=== PATIENT | female | born 1955 | race Caucasian/White ===

== ENCOUNTER → 2019-04-29 13:45 | Outpatient (CLI) | payer OTHER, SELFPAY ==
--- NOTE | 2019-04-29 14:05 | RAD_ITS ---
STUDY: X-RAY CHEST REASON FOR EXAM: Female, 64 years old. Preoperative exam TECHNIQUE: Frontal and lateral views of the chest COMPARISON: None. FINDINGS: The lungs are clear. There are no pleural effusions. There is no pneumothorax. The heart is normal in size. The visualized osseous structures are within normal limits. RAD/Chest PA and Lateral IMPRESSION: Clear lungs. Electronically Signed: Mo Diane, at 20:29 EDT Tel , Service support ,
[2019-04-29 15:24] LABS: Absolute Lymphocyte Count 2.53 X10^3/uL (0.83-4.51); Absolute Neutrophil Count 3.8 X10^3/uL (2.0-7.7); Basophil# 0.03 X10^3/uL; Basophil% 0.4 % (0-1); Eosinophil# 0.26 X10^3/uL; Eosinophils% 3.6 % (0-5); Hematocrit 39.5 % (37-47); Hemoglobin 12.8 g/dL (12.0-15.0); Lymphocyte # 2.53 X10^3/ul (4.0); Lymphocyte % 34.9 % (19-41); Mean Corp Hgb Conc 32.4 g/dL (32-36); Mean Corpuscular Volume 92.5 fL (81-99); Mean Platelet Vol. 10.2 fl (6.2-12.0); Monocyte# 0.61 X10^3/uL; Monocyte% 8.4 % (0-10); NRBC Flagged by Analyzer 0 % (0-5); Neutrophil # 3.79 X10^3/uL (2.7-7.7); Neutrophil % 52.3 % (47-70); Platelet Count 252 K/mm3 (150-450); RBC Distribution Width CV 12.5 % (11.6-14.6); RBC Distribution Width SD 42.5 fl (35.1-43.9); Red Blood Count 4.27 M/mm3 (4.2-5.4); White Blood Count 7.3 K/mm3 (4.4-11.0)
[2019-04-29 15:54] LABS: Anion Gap 7 (5-15); BUN 31 mg/dL (7-18); Calcium,Total 9.2 mg/dL (8.5-10.1); Chloride 106 mmol/L (98-107); Creatinine, Serum 1.24 mg/dL (0.55-1.02); EST Glomerular Filtration Rate 47 mL/min (>60); Est Glom Filt Rate - Afr Amer 56 mL/min (>60); Glucose 134 mg/dL (74-106); Sodium Level 142 mmol/L (136-145)
== END ==
PROVIDERS: Family Provider Family Medicine; PCP Family Medicine; Referring Provider Physician Assistant; Visit Provider Physician Assistant
DX: Z01.811 Encounter for preprocedural respiratory examination (principal); Z01.818 Encounter for other preprocedural examination
CPT/HCPCS: 36415; 71046; 80048; 85025

== ENCOUNTER → 2019-05-06 12:05 | Outpatient (CLI) | payer OTHER, SELFPAY ==
[2017-03-02 06:59] VITALS: BMI 40.1
== END ==
PROVIDERS: Family Provider Family Medicine; PCP Family Medicine; Referring Provider Orthopaedic Surgery; Visit Provider Orthopaedic Surgery
DX: Z01.818 Encounter for other preprocedural examination (principal); I10 Essential (primary) hypertension
CPT/HCPCS: 93005

== ENCOUNTER → 2022-10-30 | Outpatient (CLI) | payer MEDICARE, BC, SELFPAY ==
--- NOTE | 2022-10-30 06:48 | CT_ITS ---
EXAM: CT LEFT LOWER EXTREMITY WITHOUT INTRAVENOUS CONTRAST, FOOT CLINICAL INDICATION: CONTUSION OF LEFT FOOT TECHNIQUE: Helically acquired images were obtained of the left foot without intravenous contrast. CTDIvol = ( 15.35 ) mGy, DLP = ( 388.30 ) mGycm This CT exam was performed using one or more of the following dose reduction techniques: automated exposure control, adjustment of the mA and/or kV according to patient size, and/or use of iterative reconstruction technique. This report was created using [employer] report [employer] technology. COMPARISON: None. FINDINGS: BONES/JOINTS: Prominent posterior calcaneal enthesophyte. No acute or healing fracture or malalignment. No unusual lytic or sclerotic lesions of bone. No significant tibiotalar joint effusion. SOFT TISSUES: Subcutaneous edema at the plantar aspect of the foot. Tendons are intact. No soft tissue gas. No radiopaque foreign bodies. OTHER FINDINGS: No organized fluid collections. CT/Extremity Lower without Contra IMPRESSION: No acute or healing fracture or malalignment. Electronically Signed: Tobin Avila MD at 21:17 EDT ,
== END | disposition home or self-care (01) ==
PROVIDERS: PCP Family Medicine; Visit Provider Physician Assistant
DX: S90.32XA Contusion of left foot, initial encounter (principal); M79.672 Pain in left foot
CPT/HCPCS: 73700

== ENCOUNTER 2023-01-08 14:00 | Outpatient (RCR) | payer MEDICARE, BC, SELFPAY ==
--- NOTE | 2022-12-24 13:18 | HP.OTEVAL ---
Patient's Visit Information EMIR CAPELLAN is a 67 year old F, referred to Occupational Therapy by Dr. Moises Corral DO, with a diagnosis of osteoarthritis right hand. Date of Evaluation: 12/24/22 Occupational Therapist: Fariba Myers, OTR/Behzad, CHT - Subjective This 67 year old female was seen for OT eval with dx of right hand pain/ OA deformities - pt is a heavy lifting competition ( lift, snatches, cling) pt started lift about 4 years ago. Pt states she struggles with right hand- she at times can not make a fist. and LF deviates under RF. pt states she just started lifting again-. pt would like to know what she can do to decrease pain and cont.with her ADls and IADls at REKHA or IND. levels. 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 pt demo wit increase OA deformities of bilateral hands-. pt right RF hurts with ROM or tight composite fist 6/10 pain - Strength [employer] Chief: right 40# left 45# Lateral Pinch: right/left unable due to thumb instability Tripod Pinch: right 10# left 10# - Sensation Thumb: right 2.83 left 2.83 interpretation Normal sensation Index: right 2.83 left 2.83 interpretation Normal sensation Middle: right 2.83 left 2.83 interpretation Normal sensation Ring: right 2.83 left 2.83 interpretation Normal sensation Little: right 2.83 left 2.83 interpretation Normal sensation Sensation Comments: pt states sometimes she does have some tingling and numbness - Quick DASH-Disab of Arm,Shoulder& Hand Quick DASH Score: 29.5450 - Goals Goal:: pt will report no pain greater than 2/10 with use of hands with ADLs and IADls when using joint protection nettie. by d.c Goal:: Pt will demo understanding of joint protection and ergonomics when performing BADLs and IADLs by d/c. Pt will demo understanding of adaptive Equipment use to decrease stress on joints to allow pt to perform BADSL and IADLS at REKHA level. Goal:: Pt will demo understanding of work/lifting and carry ergonomics to decrease stress on tendons to increase pts independent with ADLs, IADLS and work tasks by d/c. Pt will demo understanding of using supportive bracing 80% of workday/ADLS to decrease stress on tendon origin to allow healing and decrease pain by end of 2nd session. - Rehabilitation General Assessment: pt demo with OA deformities limiting composite fist of right hand. pt is limited with ADLs and IADLs and would benefit from skilled OT services 1x week for 3 weeks to ed. pt on joint protection nettie., ad. eq. and use of bracing when she is performing heavy lifting tasks. pt demo understanding and agrees to POC. Rehabilitation Potential: Good - Anticipated Interventions A/AAROM/PROM, Modalities, Orthoses, Joint Protection/Energy Conservation, Ergonomic Education, Education re assistive Equipment, Education re Diagnosis, Home Program - Visit Plan Frequency: 1x/Week Duration: 3 Weeks TEXT: Thank you for the opportunity to evaluate your patient. For Medicare and Medicare HMO plans, please review the plan of care and approve it. It will need to be FAXED BACK to us at [phone] for Medicare purposes. Please let me know if there are questions or concerns regarding this plan of care. Physician Signature: Date:
--- NOTE | 2023-03-26 12:06 | HP.OT.NRP ---
Patient Information Patient Information: EMIR CAPELLAN was seen in my office for initial evaluation on 12/24/22. The following Plan of Care was established for this patient: POC Established Initial Frequency: 1x/Week Initial Duration: 3 Weeks Anticipated Interventions Anticipated Interventions: A/AAROM/PROM, Modalities, Orthoses, Joint Protection/Energy Conservation, Ergonomic Education, Education re assistive Equipment, Education re Diagnosis and Home Program Last Seen Last Seen: This patient was last seen in our office 01/08/23. Pertinent comments regarding their Occupational therapy will appear below: pt was seen for 2 OT sessions. no further apts are scheduled and due to time lapse in services pt is d/c. At this point I will be discontinuing this patient from occupational therapy. I would be happy to see this patient again in the future if found appropriate by the physician. Thank you! Fariba Myers, OTR/L, CHT
== END 2023-01-08 19:00 | disposition home or self-care (01) ==
LOC: OT 14:00
PROVIDERS: PCP Family Medicine; Referring Provider Student in an Organized Health Care Education/Training Program; Visit Provider Student in an Organized Health Care Education/Training Program
DX: M19.041 Primary osteoarthritis, right hand (principal); M79.644 Pain in right finger(s)
CPT/HCPCS: 97035; 97166; 97530